=== PATIENT | female | born 1990 | race Caucasian/White ===

== ENCOUNTER 2024-11-14 15:26 | Outpatient (CLI) | payer BC, SELFPAY ==
--- NOTE | ~2024-11-14 | CT_ITS ---
CT soft tissue neck wo con Ordering provider: Bambi Whittaker History: 34 years Female with . thyromegaly . Comparison: None. Technique: CT soft tissues neck was performed without contrast. . Automated exposure control and ite rative reconstruction technique were employed. The dose-length product was 469.24 mGy-cm. Findings: LOWER HEAD: The visualized brain parenchyma, optic globes/orbits and mastoids are normal. Left ethmo id sinus disease. Otherwise, The visualized paranasal sinuses are well aerated. SALIVARY GLANDS: Normal. THYROID: Normal. The right lobe measures 4.5 x 1.4 cm. The left measures 4.8 x 1.3 cm. SUPRAHYOID DEEP SPACES: Normal. CAROTID ARTERIES: Normal. JUGULAR VEINS: Normal. TONSILS: Normal. ORAL CAVITY: normal as visualized. PHARYNX, LARYNX AND TRACHEA: Patent and normal. No prevertebral soft tissue swelling. SUPERFICIAL SOFT TISSUES: Normal. No lymphadenopathy or neck mass. THORACIC INLET/VISUALIZED UPPER CHEST: Normal. SKELETAL: Normal. IMPRESSION: No definite abnormality seen. Reviewed, dictated and finalized at location A.
--- OUTSIDE RECORDS SUMMARY | 2024-11-14 17:32 | XMS_ITS | Clinical Summary ---
Author Organization [facility] Address [address] [place] [id number] Care Team Providers Care Client Service Associate Name Role Phone Malcolm Burgess MD Primary Care Provider Allergies No known active allergies Medications benzonatate (TESSALON) 100 mg capsuleIndicati ons:Cough Take 1 capsule (100 mg total) by mouth every 8 (eight) hours 21 capsule 07/12/2022 Active albuterol HFA (PROVENTIL HFA,VENTOLIN HFA,PROAIR HFA) 90 mcg/actuation inhalerIndicati ons:Acute Asthma Attack Inhale 2 puffs every 4 (four) hours as needed for wheezing 1 each 07/12/2022 Active Immunizations Immunization Administration Dates Next Due DTP 05/02/1996, 3,06/06/1991,1990,0 1990 Hep B, Adolescent or Pediatric 10/27/2000,1999,04/30/2000 HiB 03/01/1992 MMR 05/02/1996,03/01/1992 Meningococcal MCV4P (Menactra) 07/24/2005 OPV 05/02/1996,06/05/1993,1990 ,1990 Social History Tobacco Use Types Packs/Day Years Used Date Smoking Tobacco: Never Assessed Personal Safety Answer Date Recorded Getting School Help Needed Not on file 07/28 Comments Unknown Sex and Gender Information Value Date Recorded Sex Assigned at Not on file Legal Sex Female 10:45 AM CDT Gender Identity Not on file Sexual Orientation Not on file Last Filed Vital Signs Vital Sign Reading Time Taken Comments Blood Pressure 135/87 07/12/2022 12:00 PM SOCIOLOGY FACULTY MEMBER Pulse 72 07/12/2022 12:00 PM SOCIOLOGY FACULTY MEMBER Temperature 36.7 C (98 F) 07/12/2022 10:47 AM SOCIOLOGY FACULTY MEMBER Respiratory Rate 16 07/12/2022 12:00 PM SOCIOLOGY FACULTY MEMBER Oxygen Saturation 98% 07/12/2022 12:00 PM SOCIOLOGY FACULTY MEMBER Inhaled Oxygen Concentration - - Weight 67 kg (147 lb 11.3 oz) 07/12/2022 10:47 A M SOCIOLOGY FACULTY MEMBER Height 167.6 cm (5' 6 ) 07/12/2022 10:47 AM SOCIOLOGY FACULTY MEMBER Body Mass Index 23.84 07/12/2022 10:47 AM SOCIOLOGY FACULTY MEMBER Plan of Treatment Health Maintenance Due Date Last Done Comments Cervical Cancer Screening 1990 Depression Screening 1990 Hepatitis C Screening 1990 DTaP/Tdap/Td Vaccine (6 - Tdap) 2001 05/02/1996, 06/05/1993, 06/06/1991, Additional history exists Varicella Vaccines (1 of 2 - 13+ 2-dose series) 2003 Regular Well Visit/Exam 18-64 2008 Covid-19 Vaccine ( season) 2024 08/29/2021, 11/18/2020, 10/25/2020 Influenza Vaccine (#1) 2024 Hepatitis B Screening Completed 10/27/2000 , 05/28/2000, 04/30/2000 HPV Vaccines Aged Out No longer eligi ble based on patient's age to complete this topic Pneumococcal vaccine <65 Aged Out No longer eligible based on patient's age to complete this topic Care Teams Client Service Associate Relationship Specialty Start Date End Date Malcolm Burgess MD Lamont DEUTSCH [address] [place] [id number] PCP - General Family Medicine 07/12/22
--- OUTSIDE RECORDS SUMMARY | 2024-11-14 17:32 | XMS_ITS | Clinical Summary ---
Author Organization [facility] Address [address] [place] [id number] Care Team Providers Care Boat Wrapper Name Role Phone Malcolm Burgess MD Primary Care Provider [phone] Allergies No known active allergies Medications ALPRAZolam (XANAX) 0.5 MG tablet TAKE 1 TABLET (0.5 MG TOTAL) BY MOUTH 3 (THREE) TIMES A DAY NEEDED FOR ANXIETY. Active Melatonin 5 MG Chew Tab Chew 2 tablets by mouth daily. Active [id number] 0.18/0.215/0.25 MG-25 MCG tablet Take 1 tablet by mouth daily. 11/25/2022 Active Active Problems No known active problems Immunizations Name Administration Dates Next Due Dtp (Generic) 05/02/1996, 3,06/06/1991,1990, 991 Hepatitis B Pediatric 10/27/2000,05/28/2000,04/11 Hib (Generic) 03/01/1992 MMR (MMRII) 05/02/1996,03/01/1992 Meningococcal (Menactra) 07/24/2005 Polio Opv (Generic) 05/02/1996,06/05/1993,1990,1990 Family History Medical History Relation Comments Anxiety Father Depression Father Cancer Mother Ovarian cancer Heart Disease Paternal Grandfather Relation Status Comments Father Alive Mother Alive Paternal Grandfather Social History Tobacco Use Types Packs/Day Years Used Date Smoking Tobacco: Every Day Cigarettes Passive Smoke Exposure: Past Smokeless Tobacco: Never Tobacco Cessation:Counseling Given: Yes Alcohol Use Standard Drinks/Week Comments Not Currently 0 (1 standard drink = 0.6 oz pur e alcohol) rare use PHQ-2 Answer Date Recorded Patient Health Questionnaire-2 Score 0 09/25/2023 Comments No Sex and Gender Information Value Date Recorded Sex Assigned at Not on file Legal Sex Female 11:32 PM CDT Gender Identity Not on file Sexual Orientation Not on file Last Filed Vital Signs Vital Sign Reading Time Taken Comments Blood Pressure 117/82 09/25/2023 8:33 AM SHIRT BANDER Pulse 88 09/25/2023 8:33 AM SHIRT BANDER Temperature 36.9 C (98.5 F) 09/25/2023 8:33 AM SHIRT BANDER Respiratory Rate 18 09/25/2023 8:33 AM SHIRT BANDER Oxygen Saturation 100% 09/25/2023 8:33 AM SHIRT BANDER Inhaled Oxygen Concentration - - Weight 69.3 kg (152 lb 12.8 oz) 09/25/2023 8:33 AM SHIRT BANDER Height 167.6 cm (5' 6 ) 09/25/2023 8:33 AM SHIRT BANDER p er pt Body Mass Index 24.66 09/25/2023 8:33 AM SHIRT BANDER Plan of Treatment Health Maintenance Due Date Last Done Comments Cervical Cancer Screening Pap Smear (Age 30 to 64) Every 3 Years 1990 Pneumococcal Vaccine: Pediatrics (0 to 5 Years) and At-Risk Patients (6 to 64 Years) (1 of 2 - PCV) 1996 Hepatitis C 2008 Cervical Cancer Screening Pap with HPV Testing (Age 30 to 64) Every 5 Years 2020 Cervical Cancer Screening with HPV 2020 COVID-19 Vaccine ( season) 2024 08/29/2021, 11/18/2020, 10/25/2020 PHQ-2 (Physician Van Horne) 08/10/2024 09/25/2023 Annual Physical 09/25/2024 09/25/2023 DTaP, Tdap and Td Vaccines (6 - Tdap) 09/10/2028 05/02/1996, 06/05/1993, 06/06/1991, Additional history exists Postponed from 2001 (Per Provider Recommendation) Hepatitis B Vaccines Completed 10/27/2000, 05/28/2000, 04/30/2000 Meningococcal Vaccine Aged Out 07/24/2005 No delma delicia eligible based on patient's age to complete this topic HPV Vaccines Aged Out No longer eligi ble based on patient's age to complete this topic Meningococcal B Vaccine Aged Out No l onger eligible based on patient's age to complete this topic RSV Immunizations Under 20 Months Aged Out No longer eligible based on patient's age to complete this topic Care Teams Boat Wrapper Relationship Specialty Start Date End Date Malcolm Burgess MD [address] [id number] PCP - General 09/22/23
--- OUTSIDE RECORDS SUMMARY | 2024-11-14 17:32 | XMS_ITS | Referral Summary ---
Author Organization [facility] Address [address] [place] [phone] Care Team Providers Care Stocklayer Name Role Phone Malcolm Burgess MD Primary [...] Comments Blood Pressure 135/87 07/12/2022 12:00 PM PATROL JUDGE Pulse 72 07/12/2022 12:00 PM PATROL JUDGE Temperature 36.7 C (98 F) 07/12/2022 10:47 AM PATROL JUDGE Respiratory Rate 16 07/12/2022 12:00 PM PATROL JUDGE Oxygen Saturation 98% 07/12/2022 12:00 PM PATROL JUDGE Inhaled Oxygen Concentration - - Weight 67 kg (147 lb 11.3 oz) 07/12/2022 10:47 A M PATROL JUDGE Height 167.6 cm (5' 6 ) 07/12/2022 10:47 AM PATROL JUDGE Body Mass Index 23.84 07/12/2022 10:47 AM PATROL JUDGE Plan of Treatment Not on file Care Teams Stocklayer Relationship Specialty Start Date End Date Malcolm Burgess MD Lamont DEUTSCH [address] [place] [address] PCP - General Family Medicine 07/12/22
--- OUTSIDE RECORDS SUMMARY | 2024-11-14 17:32 | XMS_ITS | Data Portability ---
Author Organization [employer] , [facility] Address [address] [place] [address] Assessment No assessment recorded. Plan of Treatment Reminders Order Date Submit Date Provider Last Modified By Organization Details Last Modified Time Details Appointments None recorded. Lab HPV E6+E7 mRNA, qualitative PCR, cervix 2024 025 [facility], [address] [place], [address], 5 14:43:06 pap, LB 2024 025 [facility], [address] [place], [address], 5 10:01:02 test, urine 2022 023 0 [facility], [address], [place], [address], 3 13:39:22 unlisted lab - Pap reflex hold 2022 023 [email or web address] 1 [facility], [address] [place], [address], 3 13:10:55 pap, LB 2022 023 [facility], [address] [place], [address], 3 12:46:58 Referral None recorded. Procedures None recorded. Surgeries None recorded. Imaging None recorded. Medication Orders Tri-Lo-Spri ntec 0.18 mg/0.215 mg/0.25 mg-0.025 mg tablet 2022 023 8 [facility] [id number] [place], [address], 15:47:15 Patient TargetsNo targets recorded. Patient Instructions Encounter Date Encounter Id Patient Instructions Last Modified By Organization Details Last Modified Time 11/07/2022 [id number] A healthy lifestyle: care instructions [id number] Not available 11/07/2022 13:15:56 substance use disorder: care instructions [email or web address] Not available 11/07/2022 13:15:56 tobacco cessation [email or web address] Not availab le 11/07/2022 13:15:56 Following the [employer] Guide: Care Instructions [email or web address] Not available 11/07/2022 13:15:56 exercise program : getting started [email or web address] Not available 11/07/2022 13:15:56 10/17/2024 [id number] A healthy lifestyle: care instructions [email or web address] Not available 10/17/2024 16:05:16 Following the [employer] Guide: Care Instructions [email or web address] Not available 10/17/2024 16:05:16 exercise program : getting started [email or web address] Not available 10/17/2024 16:05:16 contraception information [email or web address] Not available 10/17/2024 16:05:16 Reason for Referral None Reported. Results Created Date Observation Date Name Description Value Unit Range Abnormal Flag Note LastModifiedBy Organization Detail LastModifiedTime 11/08/1911/15/2022 THINP REP TIS PAP clinical information: normal None given Not Available [facility] [address] [place], [address], 11/15/2022 12:46:58 11/08/1911/15/2022 THINP REP TIS PAP LMP: normal NONE GIVEN Not Available [facility] [address] [place], [address], 11/15/2022 12:46:58 11/08/1911/15/2022 THINP REP TIS PAP prev. Pap: normal NONE GIVEN Not Available [address], [address], 11/15/2022 12:46:58 11/08/19 23 11/15/2022 THINP REP TIS PAP prev. BX: normal NONE GIVEN Not Available [address] [place], [address], 11/15/2022 12:46:58 11/08/19 23 11/15/2022 THINP REP TIS PAP source: normal Cervi x Not Available [address], [address], 11/15/2022 12:46:58 11/08/19 23 11/15/2022 THINP REP TIS PAP statement of adequacy: normal Satis facto ry for evalu ation . Endoc ervic al/tr ansfo rmati on zone compo nent prese nt. Age and/o r menst rual statu s not provi ded Not Available [address], [address], 11/15/2022 12:46:58 11/08/19 23 11/15/2022 THINP REP TIS PAP interpretati on/result: normal Negat evie for intra epith elial lesio n or malig fabian . Not Available [address], [address], 11/15/2022 12:46:58 11/08/1911/15/2022 THINP REP TIS PAP comment: normal This case could not be evalu ated with compu ter dann tiffani techn ology . The slide was effie powell mable accor ding to routi ne proce dures . Not Available [address] [place], [address], 11/15/2022 12:46:58 11/08/19 23 11/15/2022 THINP REP TIS PAP cytotechnolo gist: normal PCM, CT( CP) CT Scree moisés Locat ion: [facility] [place] [address] [place] [address] Not Available [facility] [place] [address] [place], [address], 11/15/2022 12:46:58 11/08/19 23 11/15/2022 THINP REP TIS PAP comment EXPLA NATOR Y NOTE: The Pap is a scree moisés test for cervi edil cance r. It is not a diagn ostic test and is subje ct to false negat evie and false posit evie resul ts. It is most relia ble when a satis facto ry sampl e, regul kelli obtai mable, is submi tted with relev ant clini edil findi ngs and histo ry, and when the Pap resul t is evalu ated along with histo jr and curre nt clini edil infor matio n. Not Available [facility] [place] [address] [address], [place], [address], 11/15/2022 12:46:58 11/08/19 23 11/07/2022 pregn sabino test, urine HCG negati ve Not Available [address], [address], 11/07/2022 13:16:36 10/18/19 25 10/18/2024 HPV HIGH RISK HPV high risk Negati ve negati ve normal The HPV High Risk assay is inten ded for use as co-te sting with cytol ogy and not as a subst itute for regul ar cervi edil cytol ogy scree moisés. This assay is not inten ded for use as a scree moisés devic e for women under age 30 with pamela l cervi edil cytol ogy. Not Available [address], [address], 10/18/2024 14:43:06 10/18/19 25 10/20/2024 THINP REP TIS PAP clinical information: normal None given Not Available [address] [place], [address], 10/20/2024 10:01:02 10/18/1910/20/2024 THINP REP TIS PAP LMP: normal None given Not Available [address], [address], 10/20/2024 10:01:02 10/18/1910/20/2024 THINP REP TIS PAP prev. Pap: normal None given Not Available [address], [address], 10/20/2024 10:01:02 10/18/1910/20/2024 THINP REP TIS PAP prev. BX: normal None given Not Available [address], [address], 10/20/2024 10:01:02 10/18/1910/20/2024 THINP REP TIS PAP source: normal Cervi x Not Available [address], [address], 10/20/2024 10:01:02 10/18/1910/20/2024 THINP REP TIS PAP statement of adequacy: normal Satis facto ry for evalu ation . Endoc ervic al/tr ansfo rmati on zone compo nent prese nt. Age and/o r menst rual statu s not provi ded Not Available [address], [address], 10/20/2024 10:01:02 10/18/1910/20/2024 THINP REP TIS PAP interpretati on/result: normal Cytol ogy Resul ts: Negat evie for intra epith elial lesio n or malig fabian . Not Available [address] [place], [address], 10/20/2024 10:01:02 10/18/19 25 10/20/2024 THINP REP TIS PAP comment: normal This Pap test has been evalu ated with carlie cornell techn ology . Not Available [place] [address] [place], [address], 10/20/2024 10:01:02 10/18/19 25 10/20/2024 THINP REP TIS PAP cytotechnolo gist: normal MMD, CT( CP) CT Scree moisés Locat ion: [place] [address] [facility] [place] [address] Not Available [employer] [facility] [place] [address] [place], [address], 10/20/2024 10:01:02 10/18/1910/20/2024 THINP REP TIS PAP comment EXPLA NATOR Y NOTE: The Pap is a scree moisés test for cervi edil cance r. It is not a diagn ostic test and is subje ct to false negat evie and false posit evie resul ts. It is most relia ble when a satis facto ry sampl e, regul kelli obtai mable, is submi tted with relev ant clini edil findi ngs and histo ry, and when the Pap resul t is evalu ated along with histo jr and curre nt clini edil infor matio n. Not Available [place] [address] [place], [address], 10/20/2024 10:01:02 Result Notes None recorded. Procedures Surgical History Date Name Laterality Status Provider Name and Address Organization Details Recorded Time Date of Last Pap Smear completed ROSENDA MARSHALL- [address] [facility], [place], [address], [facility] 10/17/2024 16:04:59 Myomectomy completed [facility]3] [facility] 11/07/2022 12:57:22 Imaging Results None recorded. Procedure Notes None recorded. Medical Equipment None Reported. Allergies No known drug allergies Medications Name Sig Start Date Stop Date Status Note LastModified by Organization Details LastModified Time benzonatate 200 mg capsule TAKE 1 CAPSULE BY MOUTH THREE TIMES A DAY FOR 7 DAYS 10/17 completed Not Available Not Available Not Available propranolol ER 60 mg capsule,24 hr,extended release TAKE 1 CAPSULE BY MOUTH EVERY DAY active Not Available Not Available No t Available alprazolam 0.5 mg tablet TAKE 1 TABLET (0.5 MG TOTAL) BY MOUTH 3 (THREE) TIMES A DAY NEEDED FOR ANXIETY. active Not Available Not Available No t Available benzonatate 100 mg capsule TAKE 1 CAPSULE BY MOUTH EVERY 8 HOURS 11/07 completed Not Available Not Available Not Available albuterol sulfate HFA 90 mcg/actuati on aerosol inhaler INHALE 2 PUFFS BY MOUTH EVERY 4 HOURS NEEDED FOR WHEEZING active Not Available Not Available No t Available Tri-Lo-Spri ntec 0.18 mg/0.215 mg/0.25 mg-0.025 mg tablet Take 1 tablet every day by oral route. 10/17 completed Not Available Not Available Not Available Vitals Date Recorded Body height Body mass index (BMI) Body weight Systolic blood pressure Diastolic blood pressure Provider Name and Address Organization Details Last Updated DateTime 11/07/2022 167.64 cm 23.4 kg/m2 19750.89 g 122 mm[Hg] 76 mm[Hg] Nadia Ramosman [facility] 3 12:57:36 Date Recorded Body height Body mass index (BMI) Body weight Body temperature Systolic blood pressure Diastolic blood pressure Provider Name and Address Organization Details Last Updated DateTime 5 167.64 cm 25.1 kg/m2 12884.9 7 g 97.7 [degF] 114 mm[Hg] 72 mm[Hg] Bunny Chinchilla [facility] 15:48:49 Social History Question Answer Notes LastModified by Organizat ion Details LastModified Time Tobacco Smoking Status Current Every Day Smoker Bunny Chinchilla [facility], [facility] 10/17/2024 15:40:03 What Is Your Level Of Alcohol Consumption? None [email or web address] Information not available 11/07/2022 If You Are , What Was Your Level Of Alcohol Consumption Prior To ? None [email or web address] Information not available 10/17/2024 Are You Blind Or Do You Have Difficulty Seeing? No [email or web address] Information not available 10/17/2024 Are You Currently Employed? Yes Information not available 10/17/2024 Are You Deaf Or Do You Have Serious Difficulty Hearing? No [email or web address] Information not available 10/17/2024 What Type Of Diet Are You Following? REGULAR [email or web address] Information not available 11/07/2022 Do You Or Have You Ever Used E-cigarettes Or Vape? Current User Of Electronic Cigarettes [email or web address] Information not available 11/07/2022 How Many Children Do You Have? 0 [email or web address] Information not available 11/07/2022 What Is Your Relationship Status? Single [email or web address] Information not available 11/07/2022 Are You Sexually Active? Yes [email or web address] Information not available 11/07/2022 At What Age Did You Start Smoking Tobacco? 20 [email or web address] Information not available 11/07/2022 Do You Use Any Illicit Or Recreational Drugs? No [email or web address] Information not available 10/17/2024 Sex: Unknown Functional Status Question Answer Note LastModified by Organization D etails LastModified Time What is your exercise level? Moderate [email or web address] Information not available 11/07/2022 Mental Status None recorded. Family History Relationship Description Onset Age of this Age Resolved Age Notes LastModified by Organization Details LastModified Time Paternal Grandfather Myocardial infarction [email or web address] Not available 10/10 12:57:02 Paternal Grandfather Hypertensive disorder [email or web address] Not available 11/07 12:57:02 Paternal Grandfather Heart disease [email or web address] Not available 11/07 12:57:02 Maternal Grandmother Malignant tumor of breast [email or web address] Not available 11/07 12:57:02 Maternal Grandmother Malignant tumor of lung [email or web address] Not available 11/07 12:57:02 Maternal Grandmother Hypertensive disorder Not available 11/07 12:57:02 Mother Malignant neoplastic disease Not available 11/07 12:57:02 Mother Malignant tumor of cervix [email or web address] Not available 11/07 12:57:02 Father Depressive disorder [email or web address] Not available 11/07 12:57:02 Father Hypertensive disorder [email or web address] Not available 11/07 12:57:03 Paternal Grandmother Malignant tumor of lung [email or web address] Not available 11/07 12:57:03 Medical History Condition Response High Blood Pressure N Cytomegalovirus N Hyperthyroidism N MRSA N Blood Transfusion N Depression Y Incontinence N Anxiety Disorder Y Autoimmune disease N Arthritis N Polycystic Ovarian Syndrome N Hematuria N Varicosities N Stroke N Crohn's Disease N Seasonal allergies N Alzheimer's/Dementia N COPD/Emphysema N History of Abnormal Pap N Fibromyalgia N Kidney Infection N Kidney Disease N Gallbladder disease N Von Willebrand disease N Eating Disorder N Diabetes Mellitus (non-insulin dependent ) N Ovarian Problems N Frequent Urinary Tract infections N Osteopenia N GERD (reflux) N Diabetes (insulin dependent) N Asthma N Heart Attack N Endometrial Cancer N Hepatitis N Pulmonary Embolism N RPR N Chicken Pox N Other Cancer N Colon Cancer N Breast Cancer N Herpes (HSV) N Lung Cancer N Hypothyroidism N Panic Attacks N Neurological Disorder N Deep Vein Thrombosis N Tuberculosis/Positive PPD N Shingles N Cervical Cancer N Chlamydia N HPV/Genital Warts N Endometriosis N IBS (Irritable Bowel Syndrome) N High Cholesterol N Liver Disease N Ulcer N HIV N Sickle Cell Disease/Trait N ADD/ADHD N Anemia N Multiple Sclerosis N Gonorrhea N Headaches/migraines N Ovarian Cancer N Seizures/Epilepsy N Fibroids N Lupus N Rubella N Blood Clotting Disorder N Bipolar Disorder N Diabetes Mellitus (during ) N Ulcerative Colitis N Heart Disease N Osteoporosis N Gynecological History Statement/Question Response Flow Heavy Date of last HPV 10/17/2024 Date of LMP 10/07/2024 HPV Vaccine N Duration of Flow (days) 5 Most Recent Mammogram Current Control Method Partner Vas ectomy Age at Menarche 11 Date of Last Colonoscopy Most Recent Bone Density Date of Last Pap Smear 10/17/2024 Obstetrics History GPAL:G 1 P 0 0 1 0 Type Value Spontaneous 1 Living 0 Total 1 Past Encounters Encounter ID Performer Location Encounter Start Date Encounter Closed Date Diagnosis/Indication Diagnosis SNOMED-CT Code Diagnosis ICD10 Code Diagnosis Note [id number] ROSENDA Bazan [facility] [address] [place] [address] 11/07/2022 12:47:00 11/07/2022 13:41:16 Gynecologic examination 14838938 Z01.419 32y.o. here for annual exam. - Pap today/ HPV cotesting Discussed natural course of HPV infection, ASCCP guidelines . - Mammo at age 40, no increased risk -diet and exercise reviewed - RTO for annual or PRN Screening for malignant neoplasm of cervix 254043484 Z12.4 ASCCP guidelines reviewed with pt. Pap collected and sent. Further POC pending lab result review. Pt states understand ing of POC. Depression screening 171 637995 Z13.31 PHQ5: Negative. Pt educated on normal scoring. No further management needed. Declines interventi on Contracept ion care management 135582642 Z30.9 Pt educated on risks Vs benefits of use, and reviewed ACHES symptoms. Importance of daily administra tion within the same 30 minute time frame reinforced to pt, and on use of condoms or abstinence if dosing schedule is interrupte d. Refills sent. Plan to F/U PRN or at next [employer]. Irregular periods 642182 07 N92.6 Will switch back to [facility] to see if this alleviates her sx. [id number] [facility] [address] [place] [address] 10/17/2024 15:09:23 10/17/2024 16:22:43 Gynecologic examination 21535897 Z01.419 Patient is an establishe d patient who presents for a gynecologi edil Annual Exam. The patient denies any changes in her medical history. The patient denies any changes in her family medical history. 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 Menses lasts for 5 days. Reports they are not heavy or painful. Denies spotting in between.Pt is currently using partner's vasectomy for contracept ion. She is satisfied with her current method. Breast History:Sh e denies breast symptoms. Education on Breast Self Awareness given. Patient is regularly seen by PCP for preventati ve care: Yes Screening for malignant neoplasm of cervix 142543815 Z12.4 Contracept ion education 095075650 Z30.09 Contracept evie counseling : Discussed options including OCPs, NuvaRing, Nexplanon, hormonal and copper IUDs. Discussed risks, efficacy, noncontrac eptive benefits, and side effects of each option, including risk of VTE with hormonal contracept ion and uterine perforatio n, expulsion, infection with IUD. Depression screening 171 190172 Z13.31 See PHQ-9 Health Concerns Section Related Observation LastModified by Organization Detai ls LastModified Time None Recorded Concern Status LastModified by Organization Details LastModified Time None Recorded Advance Directives Directive None Recorded Payers Encounter Date Sequence Insurance Name Policy Number Policy Watters Covered Member ID Watters Member ID Guarantor Name 11/07/2022 1 *SELF PAY* Bradford lombardi Barrera 10/17/2024 1 [place] [id number] Soo Diaz Barrera [id number] Soo Barrera Notes Date Note Type Note Provider Name and Address Organization Details Recorded Time 11/07/2022 text/html Annual GYNReport ed bypatient.Menstrua l cycle:Severe dysmenorrhea;Irreg ular cycle intervals Urinary symptoms:No hematuria; No incontinence Vulva:No genital lesion Vagina:Normal vaginal discharge Breast:No breast pain; No breast lump; No nipple discharge Sexual complaints:No sexual complaints; No pain during intercourse; Normal libido Menopausal Symptoms:No menopausal symptoms; Normal vaginal lubrication Psychological symptoms:No depression; No anxiety; No PMDD Soo is a new patient here for her AEX. She cannot recall when her last pap was. The pharmacy switched her OCP 2 months ago and since that time she has been experiencing irregular cycles with dysmenorrhea. She has a family hx of a mother with breast and ovarian cancer. She is sexually active. She declines STI testing ROSENDA Bazan [address] [facility], [place], [address], [facility] 11/07/2022 13:41:08 10/17/2024 text/html Annual GYNReport ed bypatient.Menstrua l cycle:Normal menses Urinary symptoms:No hematuria; No incontinence Vulva:No genital lesion Vagina:Normal vaginal discharge Breast:No breast pain; No breast lump; No nipple discharge Sexual complaints:No sexual complaints; No pain during intercourse; Normal libido Menopausal Symptoms:No menopausal symptoms; Normal vaginal lubrication Psychological symptoms:No depression; No anxiety; No PMDD Soo is here for an annual exam. Pt LMP was 10-09-2024. Her last pap was in 10/30. She uses bcp's for control. Pt PHQ9 screening score is. She has no additional concerns. DERIK WAITE, KRISTINA- [address] [facility], [place], [address], [facility] 10/17/2024 16:05:50 OBGyn Episode No OBEpisode recorded.
--- OUTSIDE RECORDS SUMMARY | 2024-11-14 17:32 | XMS_ITS | Clinical Summary ---
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 Gender Identity Not on file Sexual Orientation Not on file Plan of Treatment Health Maintenance Due Date Last Done Comments Hepatitis C Virus (HCV) Screening 1990 TdaP Immunization 1990 Pap Smear 2011 Cervical Cancer Screening (CCS) 2020 HPV/Cotest 2020 Influenza Immunization (#1) 2024 SARS-COV-2 Immunization ( season) 2024 Respiratory Syncytial Virus (RSV) Immunization (Adult) (1 - 1-dose 75+ series) 2065 DTaP/Tdap/Td Immunization Discontinued 1995, 06/05/1993, 06/06/1991, Additional history exists Hepatitis B Immunization Completed 001, 05/28/2000, 04/30/2000 Meningococcal Immunization (ACWY) Aged Out No longer eligible based on patient's age to complete this topic Pneumococcal Immunization Combined Aged Out No longer eligible based on patient's age to complete this topic Rotavirus Immunization Aged Out No lo nger eligible based on patient's age to complete this topic
== END 2024-11-14 15:27 | disposition home or self-care (01) ==
DX: E01.0 Iodine-deficiency related diffuse (endemic) goiter (principal); R22.1 Localized swelling, mass and lump, neck
CPT/HCPCS: 70490